=== PATIENT | female | born 1945 | race Caucasian/White ===

== ENCOUNTER 2019-03-26 10:40 | Outpatient (REF) | payer MEDICARE, MEDICAID, SELFPAY ==
[2019-03-26 13:44] LABS: Anion Gap 9.5 mmol/L (3-11); BUN 15 mg/dL (7-18); CO2 28.5 mmol/L (21.0-32.0); Calcium 9.3 mg/dL (8.5-10.1); Calculated LDL 129; Chloride 103 mmol/L (98-107); Cholesterol 214 mg/dL (50-200); Estimated GFR 54.66 (mL/min/1.73m2); Glucose 93 mg/dL (70-100); HDL Cholesterol 45 mg/dL (40-60); Potassium 4.3 mmol/L (3.5-5.1); Sodium 141 mmol/L (136-145); Triglyceride 203 mg/dL (30-150)
[2019-03-27 10:10] LABS: Hepatitis C Ab w Rflx HCV PCR Negative (NEGAT)
== END 2019-03-26 11:00 ==
LOC: NCHCN 10:40
PROVIDERS: PCP Nurse Practitioner Family; Visit Provider Family Medicine
DX: I10 Essential (primary) hypertension (principal); Z11.59 Encounter for screening for other viral diseases
CPT/HCPCS: 80048; 80061; 83721; 86803

== ENCOUNTER 2020-03-25 10:13 | Outpatient (REF) | payer MEDICARE, MEDICAID, SELFPAY ==
[2020-03-25 15:16] LABS: HCT 43.5 % (36.0-46.0); HGB 15.1 g/dL (12.0-15.5); Mean Corp. HGB Concentration 34.7 g/dL (32.0-36.0); Mean Corpuscular Hemoglobin 30.7 pg (27.0-33.0); Mean Corpuscular Volume 88.4 fL (80-95); Mean Platelet Volume 9.8 fL (8.0-11.0); Platelet Count 232 x1000/uL (130-400); RBC 4.92 m/cumm (4.00-5.20); RBC Distribution Width 12.5 % (11.7-14.6); White Blood Cell Count 6.53 k/cumm (4.4-10.8)
[2020-03-25 15:56] LABS: ALT 28 U/L (14-59); AST 18 U/L (15-37); Albumin 3.7 g/dL (3.4-5.0); Alkaline Phosphatase 75 U/L (46-116); Anion Gap 5.5 mmol/L (3-11); BUN 16 mg/dL (7-18); Bilirubin, Total 0.7 mg/dL (0.2-1.0); CO2 28.5 mmol/L (21.0-32.0); CREATININE 0.92 mg/dL (0.55-1.02); Calcium 8.7 mg/dL (8.5-10.1); Chloride 102 mmol/L (98-107); Glucose 96 mg/dL (74-106); Potassium 3.9 mmol/L (3.5-5.1); Sodium 136 mmol/L (136-145); Total Protein 6.9 g/dL (6.4-8.2)
[2020-03-27 05:07] LABS: Vitamin D 25 Total 21.5 ng/ml (30-100)
== END 2020-03-25 10:33 ==
LOC: NCHCN 10:13
PROVIDERS: PCP Family Medicine; Visit Provider Family Medicine
DX: M06.9 Rheumatoid arthritis, unspecified (principal); I10 Essential (primary) hypertension; M85.88 Other specified disorders of bone density and structure, other site
CPT/HCPCS: 80053; 82306; 85027

== ENCOUNTER 2021-04-03 18:43 | Outpatient (REF) | payer MEDICARE, MEDICAID, SELFPAY ==
[2021-04-03 19:25] LABS: Abs Immature Grans 0.01 10^3/uL (0.0-0.06); Absolute Basophil Count 0.03 10^3/uL (0.0-0.2); Absolute Eosinophil Count 0.12 10^3/uL (0.0-0.7); Absolute Lymphocyte Count 1.76 10^3/uL (1.2-3.4); Absolute Monocyte Count 0.42 10^3/uL (0.1-0.8); Absolute Neutrophil Count 3.65 10^3/uL (1.2-6.7); Basophils % 0.5; HCT 44.7 % (36.0-46.0); HGB 15.3 g/dL (11.2-15.7); Immature Grans % 0.2; Lymphocytes % 29.4; MCH 30.9 pg (27.0-33.0); MCHC 34.2 % (32.0-36.0); MCV 90.3 fL (80-95); Neutrophils % 60.9; Nucleated RBC 0 %; Platelet Count 212 10^3/uL (130-400); RBC 4.95 10^6/uL (3.93-5.22); RDW 12.1 % (11.7-14.6); RDW-SD 39.7 fL; WBC 5.99 10^3/uL (4.4-10.8)
[2021-04-03 19:33] LABS: ALT 29 U/L (14-59); AST 22 U/L (15-37); Alkaline Phosphatase 76 U/L (46-116); Anion Gap 9.1 mmol/L (3-11); BUN 30 mg/dL (7-18); Bilirubin, Total 0.5 mg/dL (0.2-1.0); CO2 27.9 mmol/L (21.0-32.0); Calcium 8.5 mg/dL (8.5-10.1); Chloride 106 mmol/L (98-107); Estimated GFR 54.35 (mL/min/1.73m2); Glucose 90 mg/dL (74-106); Potassium 4.2 mmol/L (3.5-5.1); Sodium 143 mmol/L (136-145); Total Protein 7.1 g/dL (6.4-8.2)
[2021-04-08 12:51] LABS: 25-Hydroxy D Total 35 ng/mL; 25-Hydroxy D2 29 ng/mL; 25-Hydroxy D3 6.4 ng/mL
== END 2021-04-03 18:44 | disposition home or self-care (01) ==
LOC: LBN 18:43
PROVIDERS: PCP Family Medicine; Visit Provider Nurse Practitioner Family
DX: M06.9 Rheumatoid arthritis, unspecified (principal); Z79.899 Other long term (current) drug therapy; E55.9 Vitamin D deficiency, unspecified
CPT/HCPCS: 80053; 82306; 85025

== ENCOUNTER 2022-04-05 10:23 | Outpatient (REF) | payer MEDICARE, MEDICAID, SELFPAY ==
[2022-04-05 14:26] LABS: Anion Gap 8.8 mmol/L (3-11); BUN 21 mg/dL (7-18); CO2 26.2 mmol/L (21.0-32.0); Calcium 8.9 mg/dL (8.5-10.1); Chloride 104 mmol/L (98-107); Glucose 109 mg/dL (74-106); Potassium 3.7 mmol/L (3.5-5.1); Sodium 139 mmol/L (136-145)
== END 2022-04-05 10:24 | disposition home or self-care (01) ==
LOC: NCHCN 10:23
PROVIDERS: PCP Family Medicine; Visit Provider Family Medicine
DX: I10 Essential (primary) hypertension (principal)
CPT/HCPCS: 80048

== ENCOUNTER 2023-04-06 10:15 | Outpatient (REF) | payer MEDICARE, MEDICAID, SELFPAY ==
[2023-04-06 16:39] LABS: Calculated LDL 124 mg/dL (<100); Cholesterol 204 mg/dL (<200); Glucose 97 mg/dL (74-106); HDL Cholesterol 51 mg/dL (40-60); Triglyceride 149 mg/dL (<150)
[2023-04-06 17:45] LABS: Vitamin D 25 Total 52.6 ng/mL (30-100)
== END 2023-04-06 10:16 | disposition home or self-care (01) ==
LOC: NCHCN 10:15
PROVIDERS: PCP Family Medicine; Visit Provider Family Medicine
DX: E78.5 Hyperlipidemia, unspecified (principal); M06.9 Rheumatoid arthritis, unspecified; E66.8 Other obesity; Z68.33 Body mass index [BMI] 33.0-33.9, adult; E55.9 Vitamin D deficiency, unspecified; M85.88 Other specified disorders of bone density and structure, other site
CPT/HCPCS: 80061; 82306; 82947